=== PATIENT | female | born 1950 | race Caucasian/White ===

== ENCOUNTER 2020-12-24 08:00 | Outpatient (RCR) | payer MEDICARE, OTHER, SELFPAY ==
[2020-06-30 11:26] VITALS: BMI 21.4
[2020-12-24] MEDS: COVID-19 VACC, MRNA(PFIZER)/PF 30 MCG/0.3 ML SYRINGE IM (09:19)
[2021-01-14] MEDS: COVID-19 VACC, MRNA(PFIZER)/PF 30 MCG/0.3 ML SYRINGE IM (09:29)
== END 2021-03-30 23:59 ==
LOC: IMMUN 08:00
PROVIDERS: PCP Nurse Practitioner Adult Health; Visit Provider Family Medicine
DX: Z23 Encounter for immunization (principal)
CPT/HCPCS: 0001A; 0002A; 91300

== ENCOUNTER → 2021-07-14 10:43 | Outpatient (CLI) | payer MEDICARE, OTHER, SELFPAY ==
[2021-01-11 11:23] VITALS: BMI 21.2
--- NOTE | 2021-07-14 10:48 | ECHOD_ITS ---
Reason For Study: Murmur Procedure This was a 2D Doppler, Color Flow transthoracic echocardiogram. Exam performed in department. Left Ventricle Normal LV size. The estimated ejection fraction is 60 %. Normal diastology for age. No regional wall motion abnormalities noted. Right Ventricle Normal RV size. Normal systolic function. Atria Normal left atrium. Normal right atrium. No doppler evidence for ASD. Mitral Valve There is no mitral valve stenosis. Trivial mitral valve insufficiency. Tricuspid Valve There is no tricuspid stenosis. Unable to estimate RV systolic pressure due to insufficient tricuspid regurgitant envelope. Trivial tricuspid valve insufficiency. Aortic Valve Trisinus/trileaflet aortic valve. Mild diffuse aortic valve thickening. Moderate aortic stenosis. Mild (1+) aortic valve insufficiency. Pulmonic Valve There is no pulmonic valvular stenosis. Trivial pulmonic valve insufficiency. Great Vessels Normal aortic root. Pericardium/Pleural No pericardial effusion. MMode/2D Measurements & Calculations LVIDd: 3.7 cm IVSd: 0.99 cm LVOT diam: 2.0 cm LVIDs: 2.2 cm LVPWd: 0.96 cm LVOT area: 3.1 cm2 RVDd: 2.8 cm FS: 40.0 % Ao root diam: 3.6 cm LAV(MOD-bp): 26.7 ml LVAd ap4: 23.0 cm2 LAV(MOD-bp) Indexed: 16.8 ml/m2 LVLd ap4: 7.6 cm LAV(MOD-sp2): 27.7 ml EDV(MOD-sp4): 56.2 ml LAV(MOD-sp4): 21.3 ml EDV(sp4-el): 59.2 ml LVAs ap4: 13.4 cm2 LVLs ap4: 6.8 cm ESV(MOD-sp4): 23.7 ml ESV(sp4-el): 22.2 ml EF(MOD-sp4): 57.8 % EF(sp4-el): 62.4 % SV(MOD-sp4): 32.5 ml SV(sp4-el): 36.9 ml LA A4 area: 11.2 cm2 LA dimension(2D): 2.5 cm RA A4 area: 9.6 cm2 Doppler Measurements & Calculations MV E max irwin: 72.1 cm/sec Lat Peak E' Irwin: 6.5 cm/sec Med Peak E' Irwin: 5.9 cm/sec MV A max irwin: 82.7 cm/sec E/E' lat: 11.2 E/E' med: 12.1 MV E/A: 0.87 Ao V2 max: 345.3 cm/sec AI max irwin: 343.4 cm/sec LV V1 max: 109.4 cm/sec Ao max P.7 mmHg AI max P.2 mmHg LV V1 max P.8 mmHg Ao V2 mean: 245.7 cm/sec LV V1 mean P.9 mmHg Ao mean P.9 mmHg AI dec slope: 189.4 cm/sec2 LV V1 mean: 82.0 cm/sec Ao V2 VTI: 85.0 cm AI P1/2t: 531.1 msec LV V1 VTI: 27.4 cm ANGELI(I,D): 1.0 cm2 ANGELI(V,D): 0.99 cm2 SV(LVOT): 85.5 ml PA V2 max: 91.5 cm/sec TR max irwin: 230.5 cm/sec TR max P.2 mmHg ECHO/Echo Complete Interpretation Summary The estimated ejection fraction is 60 %. Trivial mitral valve insufficiency. Moderate aortic stenosis. Mild (1+) aortic valve insufficiency. Ordering Physician: Natalie Dumont Referring Physician: Tressa Bryan Performed By: Thea Fierro, LANCE, RVT
== END ==
PROVIDERS: PCP Nurse Practitioner Adult Health; Referring Provider Physician Assistant Medical; Visit Provider Physician Assistant Medical
DX: I35.0 Nonrheumatic aortic (valve) stenosis (principal)
CPT/HCPCS: 93306

== ENCOUNTER → 2022-06-22 | Outpatient (CLI) | payer MEDICARE, OTHER, SELFPAY ==
--- NOTE | 2022-06-22 13:00 | ECHOD_ITS ---
Reason For Study: MURMUR Procedure This was a 2D Doppler, Color Flow transthoracic echocardiogram. The exam was of adequate technical quality. Exam performed in department. Left Ventricle Normal LV size. Mid cavitary false tendon noted. Borderline concentric left ventricular hypertrophy. Left ventricular systolic function is normal. The estimated ejection fraction is 60 %. Normal diastology for age. No regional wall motion abnormalities noted. Right Ventricle Normal right ventricle. Normal systolic function. Atria Normal left atrium. Normal right atrium. Prominent eustachian valve. No doppler evidence for ASD. Mitral Valve There is no mitral annular calcification. The mitral valve is structurally normal. No prolapse or stenosis seen. Trivial mitral valve insufficiency. Tricuspid Valve Normal tricuspid valve. Trivial tricuspid valve insufficiency. Unable to estimate RV systolic pressure due to insufficient tricuspid regurgitant envelope. Aortic Valve Trisinus/trileaflet aortic valve. Moderate diffuse aortic valve thickening. Moderate diffuse aortic valve calcification. Moderate aortic stenosis. Peak aortic valve gradient 59 mmHg. Mean aortic valve gradient 36 mmHg. Calculated aortic valve area (continuity equation) is 0.8 cm2. Mild (1+) aortic valve insufficiency. Pulmonic Valve The pulmonic valve is not well visualized. Trivial pulmonic valve insufficiency. Great Vessels Normal sized aortic root. Pericardium/Pleural No pericardial effusion. MMode/2D Measurements & Calculations LVIDd: 4.1 cm IVSd: 1.1 cm LVOT diam: 2.0 cm LVIDs: 2.8 cm LVPWd: 1.1 cm LVOT area: 3.2 cm2 RVDd: 2.8 cm FS: 30.5 % Ao root diam: 3.5 cm LAV(MOD-bp): 37.6 ml LVAd ap4: 24.8 cm2 LAV(MOD-bp) Indexed: 25.6 ml/m2 LVLd ap4: 7.5 cm LAV(MOD-sp2): 46.7 ml EDV(MOD-sp4): 69.6 ml LAV(MOD-sp4): 27.8 ml EDV(sp4-el): 69.5 ml LVAs ap4: 12.8 cm2 LVLs ap4: 6.0 cm ESV(MOD-sp4): 23.4 ml ESV(sp4-el): 23.5 ml EF(MOD-sp4): 66.4 % EF(sp4-el): 66.2 % LVAd ap2: 24.0 cm2 SV(MOD-sp4): 46.2 ml SV(MOD-sp2): 41.9 ml LVLd ap2: 7.3 cm EDV(MOD-sp2): 64.9 ml EDV(sp2-el): 67.4 ml LVAs ap2: 12.6 cm2 LVLs ap2: 6.9 cm ESV(MOD-sp2): 22.9 ml ESV(sp2-el): 19.6 ml EF(MOD-sp2): 64.7 % SV(sp4-el): 46.0 ml LA dimension(2D): 2.9 cm LA A4 area: 13.0 cm2 RA A4 area: 12.7 cm2 Time Measurements MV dec time: 0.52 sec Doppler Measurements & Calculations MV E max irwin: 57.8 cm/sec Lat Peak E' Irwin: 6.2 cm/sec Med Peak E' Irwin: 6.9 cm/sec MV A max irwin: 96.5 cm/sec E/E' lat: 9.3 E/E' med: 8.4 MV E/A: 0.60 Ao V2 max: 384.4 cm/sec AI max irwin: 480.5 cm/sec MV dec slope: 131.4 cm/sec2 Ao max P.1 mmHg AI max P.3 mmHg Ao V2 mean: 286.2 cm/sec Ao mean P.2 mmHg AI dec slope: 278.0 cm/sec2 Ao V2 VTI: 101.4 cm AI P1/2t: 506.3 msec ANGELI(I,D): 0.79 cm2 ANGELI(V,D): 0.82 cm2 LV V1 max: 97.1 cm/sec SV(LVOT): 79.8 ml PA V2 max: 65.4 cm/sec LV V1 max P.8 mmHg LV V1 mean P.0 mmHg LV V1 mean: 67.1 cm/sec LV V1 VTI: 24.6 cm ECHO/Echo Complete Interpretation Summary Left ventricular systolic function is normal. The estimated ejection fraction is 60 %. Borderline concentric left ventricular hypertrophy. Mid cavitary false tendon noted. Prominent eustachian valve. Trivial mitral valve insufficiency. Trivial tricuspid valve insufficiency. Moderate aortic stenosis. Mild (1+) aortic valve insufficiency. Trivial pulmonic valve insufficiency. Unable to estimate RV systolic pressure due to insufficient tricuspid regurgita nt envelope. Normal diastology for age. Ordering Physician: Natalie Dumont Referring Physician: Tressa Bryan Performed By: Shirley Reyes RDCS, RVT
== END | disposition home or self-care (01) ==
LOC: CVS 12:39
PROVIDERS: PCP Nurse Practitioner Adult Health; Referring Provider Physician Assistant Medical; Visit Provider Physician Assistant Medical
DX: I35.0 Nonrheumatic aortic (valve) stenosis (principal)
CPT/HCPCS: 93306

== ENCOUNTER → 2023-01-13 | Outpatient (CLI) | payer MEDICARE, OTHER, SELFPAY ==
[2023-01-13 10:24] VITALS: BP 173/62; PULSE 59; RESP 16; TEMP 36; O2SAT 100; BMI 19.0
[2023-01-13] MEDS: 0.9% NaCl Peripheral Flush Adult/Peds IV (10:54)
[2023-01-13] MEDS: Zoledronic Acid 5 MG 100 ML 300 MG IV (10:59)
[2023-01-13 11:00] VITALS: BP 144/63
[2023-01-13 11:27] VITALS: BP 142/61; PULSE 58; RESP 16; TEMP 36.4; O2SAT 100
== END | disposition home or self-care (01) ==
LOC: MEDOUTP 10:13
PROVIDERS: PCP Nurse Practitioner Adult Health; Referring Provider Internal Medicine Endocrinology, Diabetes & Metabolism; Visit Provider Internal Medicine Endocrinology, Diabetes & Metabolism
DX: M85.80 Other specified disorders of bone density and structure, unspecified site (principal)
CPT/HCPCS: 96365; A4216; J3489

== ENCOUNTER → 2023-03-01 | Outpatient (CLI) | payer MEDICARE, OTHER, SELFPAY ==
--- NOTE | 2023-03-01 10:52 | ECHOL_ITS ---
Reason For Study: Re-Evaluate Gradients Procedure This was a limited 2D transthoracic echocardiogram. Exam performed in department. Left Ventricle Normal LV size. Left ventricular systolic function is normal. The estimated ejection fraction is 60 %. No regional wall motion abnormalities noted. Right Ventricle Normal RV size. Normal systolic function. Atria Normal left atrium. Normal right atrium. Mitral Valve Normal mitral valve. Tricuspid Valve Normal tricuspid valve. Aortic Valve Trisinus/trileaflet aortic valve. Moderate focal aortic valve calcification. Peak aortic valve gradient 70 mmHg. Mean aortic valve gradient 40 mmHg. Moderate to severe aortic stenosis. Mild (1+) aortic valve insufficiency. Pulmonic Valve Normal pulmonic valve. Great Vessels Normal aortic root. The pulmonary artery is normal size. Normal inferior vena cava. Pericardium/Pleural No pericardial effusion. MMode/2D Measurements & Calculations LVIDd: 4.2 cm IVSd: 0.87 cm LVOT diam: 2.0 cm LVIDs: 2.6 cm LVPWd: 0.96 cm LVOT area: 3.1 cm2 FS: 36.9 % Ao root diam: 3.3 cm LAV(MOD-sp4): 24.8 ml LA A4 area: 12.2 cm2 RA A4 area: 11.3 cm2 Doppler Measurements & Calculations Ao V2 max: 396.7 cm/sec AI max tiff: 377.6 cm/sec LV V1 max: 90.3 cm/sec Ao max P.3 mmHg AI max P.1 mmHg LV V1 max P.3 mmHg Ao V2 mean: 301.1 cm/sec AI dec slope: 262.8 cm/sec2 LV V1 mean P.9 mmHg Ao mean P.2 mmHg AI P1/2t: 420.8 msec LV V1 mean: 63.8 cm/sec Ao V2 VTI: 112.5 cm LV V1 VTI: 27.0 cm AV (velocity ratio): 0.24 ANGELI(I,D): 0.75 cm2 ANGELI(V,D): 0.71 cm2 SV(LVOT): 83.9 ml ECHO/Echo, Limited Study Interpretation Summary Normal LV size. Left ventricular systolic function is normal. The estimated ejection fraction is 60 %. Mean aortic valve gradient 40 mmHg. Moderate to severe aortic stenosis. Compared to the previous the Aortic valves gradients are worse. Ordering Physician: Barrie Fierro Referring Physician: Barrie Fierro Performed By: Basil Bustillos RCS
== END | disposition home or self-care (01) ==
LOC: CVS 10:51
PROVIDERS: PCP Nurse Practitioner Adult Health; Referring Provider Nurse Practitioner Family; Visit Provider Nurse Practitioner Family
DX: I35.0 Nonrheumatic aortic (valve) stenosis (principal); I10 Essential (primary) hypertension; E78.5 Hyperlipidemia, unspecified
CPT/HCPCS: 93308

== ENCOUNTER → 2023-03-14 | Outpatient (CLI) | payer MEDICARE, OTHER, SELFPAY ==
--- NOTE | 2023-03-14 11:05 | RAD_ITS ---
EXAM: XR CHEST, 2 VIEWS CLINICAL INDICATION: pre-operative: C TECHNIQUE: Frontal and lateral views of the chest. COMPARISON: No relevant prior studies available. FINDINGS: LUNGS AND PLEURAL SPACES: Unremarkable. No consolidation or edema. No pneumothorax. No effusion. HEART: Unremarkable. Cardiac silhouette not enlarged. MEDIASTINUM: Central airways and mediastinal contour are unremarkable. BONES/JOINTS: Unremarkable. SOFT TISSUES: Unremarkable. RAD/Chest PA and Lateral IMPRESSION: No radiographic evidence of acute cardiopulmonary disease. Electronically Signed: Thompson Peralta MD at 23:06 EDT ,
== END | disposition home or self-care (01) ==
LOC: RAD 10:49
PROVIDERS: PCP Nurse Practitioner Adult Health; Referring Provider Nurse Practitioner Family; Visit Provider Nurse Practitioner Family
DX: Z01.818 Encounter for other preprocedural examination (principal); I35.0 Nonrheumatic aortic (valve) stenosis; I10 Essential (primary) hypertension; E78.5 Hyperlipidemia, unspecified
CPT/HCPCS: 71046

== ENCOUNTER 2023-03-21 06:39 | Day surgery (SDC) | payer MEDICARE, OTHER, SELFPAY ==
--- NOTE | 2023-03-08 12:51 | HP.PCM_ITS ---
History and Physical Date of Admission: 03/21/23 Vivian Hagan is a 72-year-old female that presents here today for a heart catheterization. She has a history of aortic valve stenosis, hyperlipidemia, and hypertension.? She denies chest, arm, jaw, or neck discomfort.? She states palpitations over the last 6 months that she describes as a flutter. This occurs twice a week and lasts for 5 minutes. This resolves on its own.? She denies bilateral lower extremity edema.? She denies claudication.? She states shortness of breath with activity such as carrying clothes basket up the stairs. She denies SOB with ADLs. She denies shortness of breath at rest, orthopnea, or PND.? She denies chronic cough.? She denies significant, sudden weight gain.? She denies lightheadedness, dizziness, near-syncope, or syncope.? She denies blood in urine, blood in stool, or epistaxis.? He denies fever or chills.? She denies myalgia.? She denies fatigue.? Her exercise level has remained stable. She states at home her systolic readings 120-130s. Intake Vital Signs: See EMR Intake Visit Reasons:[facility] Certified Mortician Required: No Is patient in pain?: No Allergies demeclocycline Allergy (Intermediate, Verified 01/03/23 10:32) Hivessitagliptin [From Januvia] Allergy (Intermediate, Verified 01/03/23 10:32) Shortness of breathTetracyclines Allergy (Intermediate, Verified 01/03/23 10:32) Unknownamlodipine Adverse Reaction (Severe, Verified 01/03/23 10:32) hypertension Medications See EMR [facility] Medical History? 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 History of bunionectomy History of cataract extraction History of cystocele History of eye surgery History of selective laser trabeculoplasty History of tubal ligation Family History? Mother?? Cerebral hemorrhage ArthritisFather?? Myocardial infarctionBrother Myocardial infarction ?? ? deceasedSister CAD (coronary artery disease) Myocardial infarction Breast cancer Heart failure DiabetesSister Breast cancerGrandmother Cerebral hemorrhage ?? ? deceasedOther High cholesterol Hypertension Thyroid disorder Social History? Smoking Status:? Never smoker alcohol intake:? current alcohol intake frequency: holidays/special occasions only details:? occasionally glass of wine substance use type:? does not use caffeine:? Yes Type: carbonated beverages Number of servings: 1 and coffee Number of servings: 2 what type of physical activity do you participate in:? walking frequency:? daily ROS Const Const: Negative for fatigue, weakness, body ache, fever(s) or chills ENT ENT: Negative for dizziness or Nosebleed/epistaxis Cardio Chest Pain: No Palpitations: Yes Edema: None Muscle aches with walking: None Resp Respiratory: Positive for SOB with activity; Negative for SOB at rest, SOB orthopnea\SOB lying down, Cough or paroxysmal nocturnal dyspnea GI GI: Negative nausea, vomiting blood/hematemesis, bright, red blood in stools or black,tarry stools : Negative for hematuria or frequent nighttime urination/ nocturia Musc Musc: Negative for muscle aches/ myalgia Skin Skin: Negative non-healing lesions or rash Neuro Neuro: Negative for dizziness, lightheadedness, near syncope, syncope, orthostatic symptoms or weakness Endo Endo: Negative for fatigue Allergy Allergy/Immunology: Negative for rash Cardiology Exam Const Appearance: cooperative, healthy appearing, comfortable and no acute distress Nutritional Appearance: average body habitus and well nourished Orientation: alert, awake and oriented x3 Head Head: normal to inspection Ears: hearing grossly normal bilaterally Nose: external nose normal Face and Sinus: face symmetric Mouth: moist mucous membranes Eyes General: appearance normal, both eyes and all related structures Eyelids: eyelids normal EOM: EOM intact bilaterally Neck Neck: normal visual inspection and no JVD Carotids: normal carotid upstroke Chest Chest inspection: normal inspection of the chest, symmetric chest movement and normal respiratory effort; Negative cough Auscultation: Bilateral: Clear to Auscultation Cardio Rate: regular rate Rhythm: regular rhythm Heart sounds: S1 normal, S2 normal and murmur; Negative rub or gallop Murmur: Grade 3/6 and JEFF loudest primary aortic area GI GI: normal to inspection Neuro General: patient alert, patient awake, patient oriented x3 and CN's II-XI intact bilaterally Skin Skin: no rashes or lesions noted Extremities Pulses: Normal: Right Posterior Tibial Pulse, Left Posterior Tibial Pulse, Right Radial Pulse and Left Radial Pulse Lower Extremity Edema: None: Bilateral Psych Psychological: normal affect Supplemental Info Supplemental Information Echocardiogram 03/01/2023: Interpretation Summary Normal LV size. Left ventricular systolic function is normal. The estimated ejection fraction is 60 %. Mean aortic valve gradient 40 mmHg. Moderate to severe aortic stenosis. Compared to the previous the Aortic valves gradients are worse. Echocardiogram: 06-22-2022 Interpretation Summary ? Left ventricular systolic function is normal. The estimated ejection fraction is 60 %. Borderline concentric left ventricular hypertrophy. Mid cavitary false tendon noted. Prominent eustachian valve. Trivial mitral valve insufficiency. Trivial tricuspid valve insufficiency. Moderate aortic stenosis. Mild (1+) aortic valve insufficiency. Trivial pulmonic valve insufficiency. Unable to estimate RV systolic pressure due to insufficient tricuspid regurgitant envelope. Normal diastology for age. Echocardiogram 07-14-2021: The estimated ejection fraction is 60 %. Trivial mitral valve insufficiency. Moderate aortic stenosis. Mild (1+) aortic valve insufficiency. Assessment and Plan Assessment and Plan (1) Nonrheumatic aortic (valve) stenosis: ?Status:?Chronic ?Plan: She underwent an echocardiogram on March 01, 2023 that showed worsening aortic valve stenosis. Peak gradient was noted to be 70 mmHg. Mean gradient was noted be 40 mmHg. Aortic valve area was 0.75/0.7 1 cm?. On account of valvular disease and symptoms, she will proceed with heart catheterization to define coronary artery anatomy. This will help guide further valvular treatment. (2) Essential hypertension: ?Status:?Chronic ?Plan: Patient's blood pressure is well-controlled at home.? We will continue to monitor.? We will not make any medication regimen changes. We will consider adjustment as needed, baring in mind aortic valve disease. (3) Hyperlipidemia: ?Status:?Chronic ?Plan: A copy of her lipid labs has been requested after her last office appointment for continuity of care.
[2023-03-14 11:41] LABS: Absolute Lymphocyte Count 1.44 X10^3/uL (0.83-4.51); Absolute Neutrophil Count 3.2 X10^3/uL (2.0-7.7); Basophil# 0.07 X10^3/uL; Basophil% 1.3 % (0-1); Eosinophil# 0.12 X10^3/uL; Eosinophils% 2.2 % (0-5); Hematocrit 37.9 % (37-47); Hemoglobin 11.9 g/dL (12.0-15.0); Lymphocyte # 1.44 X10^3/ul (0.83-4.51); Lymphocyte % 26.3 % (19-41); Mean Corp Hgb Conc 31.4 g/dL (32-36); Mean Corpuscular Hgb 28.5 pg (27.0-32.0); Mean Corpuscular Volume 90.7 fL (81-99); Mean Platelet Vol. 10.4 fl (6.2-12.0); Monocyte# 0.58 X10^3/uL; Monocyte% 10.6 % (0-10); NRBC Flagged by Analyzer 0 % (0-5); Neutrophil # 3.21 X10^3/uL (2.7-7.7); Neutrophil % 58.5 % (47-70); Platelet Count 305 K/mm3 (150-450); RBC Distribution Width CV 13.1 % (11.6-14.6); RBC Distribution Width SD 43.1 fl (35.1-43.9); Red Blood Count 4.18 M/mm3 (4.2-5.4); White Blood Count 5.5 K/mm3 (4.4-11.0)
[2023-03-14 12:40] LABS: Anion Gap 5 (5-15); BUN 11 mg/dL (7-18); BUN/Creat Ratio 10.2 RATIO (10-20); Calcium,Total 9.9 mg/dL (8.5-10.1); Chloride 110 mmol/L (98-107); Creatinine, Serum 1.08 mg/dL (0.55-1.02); EST Glomerular Filtration Rate 53 mL/min (>60); Est Glom Filt Rate - Afr Amer 64 mL/min (>60); Glucose 106 mg/dL (74-106); Potassium 4.8 mmol/L (3.5-5.1); Sodium Level 141 mmol/L (136-145)
[2023-03-21 07:02] VITALS: BMI 18.8
--- NOTE | 2023-03-21 08:30 | CL.D_ITS ---
Patient Name: NISA FERRIS Study Date: 03/21/2023 Performing: Martinez Sharma MD Ht: 64 inches 162.56 cm : 1950 Wt: lbs kg Age: 72 Gender: female BSA: PROCEDURE(S) PERFORMED [id number])C/COR CLINICAL PROFILE AND INDICATIONS Indications: Valvular Disease Heart Failure: None Stress/Imaging Stress/Image Study Performed: No CAD Presentations: No Sxs, no angina. CONCLUSIONS Mild LAD disease. Preserved LV function. Severe aortic stenosis. RECOMMENDATIONS Consider for TAVR. DESCRIPTION OF PROCEDURE The patient arrived to the procedure lab. The risks and benefits of the procedure as well as a full description of our services here and current unavailability of surgical backup were fully explained to the patient and/or their significant other prior to the catheterization. The Timeout was completed, verifying the correct patient and procedure. The patient's procedural site was prepped and draped in the usual fashion. Local anesthetic was given subcutaneously to right radial region with Lidocaine 2%. Local anesthetic was given subcutaneously to right groin region with Lidocaine 2%. Using a modified Seldinger technique, arterial access was obtained via the right radial artery, a 6Fr sheath was inserted., arterial access was obtained via the right femoral artery, a 5Fr sheath was inserted. Right upper extremity selective angiography was then performed in single view. Left Coronary Artery selective angiography was performed in multiple views using a 5 Fr. JL4 catheter. Right Coronary Artery selective angiography was then performed in multiple views using a 5 Fr. 3DRC ([place]) catheter.Contrast was injected through the sheath and the Right Iliac and Femoral artery were assessed for possible closure device.The femoral arterial sheath was pulled and a Mynx closure device was deployed for hemostasis. The radial arterial sheath was pulled and a TR Band was applied for hemostasis - 10cc air CORONARY ANGIOGRAPHY DOMINANCE: Right Dominant LEFT HEART ASSESSMENT Left Ventricular Ejection Fraction: by Echo 60 % Normal LV wall motion Normal Left Ventricular systolic function LEFT MAIN: Angiographically normal LEFT ANTERIOR DESCENDING ARTERY: Mild calcification, Mild to moderate 30 to 50% stenosis in the mid left anterior descending artery. CIRCUMFLEX ARTERY: Mild luminal irregularities RIGHT CORONARY ARTERY: No significant disease noted VALVE FINDINGS: Aortic Valve Calcification - severe Aortic Valve Stenosis - severe COMPLICATIONS No Complications PROCEDURE MEDICATIONS Fentanyl 50 mcg IV Versed 1 mg IV Versed 1 mg IV Oxygen: 2 L/min via nasal cannula Heparin given IA 03/21/2023 07:52:09 Verapamil 2.5mg, 3000 units of Heparin given IA 03/21/2023 07:52:09 SUMMARY OF HEMODYNAMIC DATA Time AIR REST ECG 07:05:09 AO 173/77 (111) SA 07:54:12 Signed By Martinez Sharma MD On 03/21/2023 08:30:19 Martinez Sharma MD
== END 2023-03-21 10:30 | disposition home or self-care (01) ==
LOC: CLSP 06:40
PROVIDERS: Nurse Practitioner Family; PCP Nurse Practitioner Adult Health; Referring Provider Internal Medicine Cardiovascular Disease; Visit Provider Internal Medicine Cardiovascular Disease
DX: I35.0 Nonrheumatic aortic (valve) stenosis (principal); E11.9 Type 2 diabetes mellitus without complications; I10 Essential (primary) hypertension; E78.5 Hyperlipidemia, unspecified; Z79.82 Long term (current) use of aspirin; Z79.84 Long term (current) use of oral hypoglycemic drugs; Z79.899 Other long term (current) drug therapy; E03.9 Hypothyroidism, unspecified; Z79.890 Hormone replacement therapy; I25.10 Atherosclerotic heart disease of native coronary artery without angina pectoris
CPT/HCPCS: 36415; 80048; 85025; 93454; 99152; 99153; C1760; J7040; C1769; C1894; Q9967

== ENCOUNTER → 2023-05-15 | Outpatient (CLI) | payer MEDICARE, OTHER, SELFPAY ==
--- NOTE | 2023-05-15 12:47 | PCM.CR.HP2 ---
CR - History & Physical General Arrival date:: 05/15/23 Arrival time:: 12:53 Date of Referral:: 05/10/23 Date of CR Evaluation:: 05/15/23 Referring Physician: Dr. Martinez Sharma Primary Diagnosis: Heart valve replacement History of Present Cardiac Event Onset Date Heart valve replacement or repair:: Yes (TAVR 04/10/23) Medications Ambulatory Orders Medication Instructions Recorded aspirin 81 mg tablet,delayed 81 mg PO DAILY 06/30/20 release (Adult Aspirin Regimen) latanoprost 0.005 % eye drops 1 drp ophthalmic (eye) QPM 06/30/20 levothyroxine 50 mcg tablet 50 mcg PO DAILY 06/30/20 metformin 1,000 mg tablet 1,000 mg PO BID 06/30/20 omeprazole 20 mg capsule,delayed 20 mg PO DAILY 06/30/20 release pravastatin 10 mg tablet 10 mg PO QHS 06/30/20 dorzolamide 22.3 mg-timolol 6.8 1 drp ophthalmic (eye) ONCE 03/01/22 mg/mL eye drops losartan 100 mg tablet 100 mg PO DAILY 07/20/22 mecobalamin (vitamin B12) 1,000 1,000 mcg PO DAILY 11/10/22 mcg chewable tablet amlodipine 5 mg tablet 5 mg PO DAILY 01/03/23 diclofenac sodium 1 % topical gel 0.5 g topical .qid 05/10/23 Allergies Allergies demeclocycline Allergy (Intermediate, Verified 03/17/23 09:47) Hives sitagliptin [From Januvia] Allergy (Intermediate, Verified 03/17/23 09:47) Shortness of breath Tetracyclines Allergy (Intermediate, Verified 03/17/23 09:47) Unknown amlodipine Adverse Reaction (Severe, Verified 03/17/23 09:47) hypertension brimonidine Adverse Reaction (Unknown, Verified 05/10/23 13:45) unknown- ask pt at next appt Sleep Disorder Evaluation Hx of Sleep Apnea: No Do you snore loudly (louder than talking or can be heard through closed doors)?: No Do you often feel tired/ fatigued/ sleepy during daytime?: No Has anyone observed you stop breathing during sleep?: No History of Hypertension (for STOP score): Yes STOP Results: Negative Advanced Directives Advanced Directives Power of Baby Attendant: Yes Living Will: Yes Advance Directives Information Provided: Yes Advance Directives on File: No DNR Order?:: No Past Medical History Covid-19 Screening Physicial Symptoms Other Clinical Concerns Exposure Risk Pertinent Comorbidities Has a serious heart condition:: Yes Diabetic:: Yes Past Medical Illness Medical History Essential hypertension GERD (gastroesophageal reflux disease) 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) History of retinal detachment Hypercalcemia Hyperlipidemia Hyperparathyroidism Hypothyroidism Nonrheumatic aortic (valve) stenosis Osteopenia determined by x-ray Type 2 diabetes mellitus without complication Past Surgical History Surgical History History of bunionectomy History of cataract extraction History of cystocele History of eye surgery History of selective laser trabeculoplasty History of tubal ligation S/P TAVR (transcatheter aortic valve replacement) (04/10/23) Family History Summary Family History Mother Cerebral hemorrhage Arthritis Father Myocardial infarction Brother Myocardial infarction Sister CAD (coronary artery disease) Myocardial infarction Breast cancer Heart failure Diabetes Sister Breast cancer Grandmother Cerebral hemorrhage Other High cholesterol Hypertension Thyroid disorder Social History Smoking History Smoking Status: Never smoker Alcohol Use Alcohol Usage: Yes (socially) Occupation Occupation (List type of work in comments):: Retired Hobbies, Recreation, Social Activities Hobbies: Reading and Walking Recreational Activities: I am able to engage in all my recreational activities Social Environment Status Marital Status: Current Living Arrangements Living Environment:: Family Children How many children do you have?: 2 Do any of your children live nearby?: Yes Safety Do you feel safe in your surroundings?: Yes Assistance Do you need any assistance at home?: no Review of Systems Review of Systems Hints Review of Present Symptoms: Reports Shortness of Breath with Exertion, Dizziness/Lightheadedness, Fatigue, Appetite - Normal and Appetite - Special Diet; Denies Shortness of Breath at Rest, PVD, Operative Discomfort, Angina, Wound Healing, Heart Arrhythmia/Irregularities, Sleep - Normal or Sexual Changes Pain Is Patient Pain Free?: Yes Risk Factor Assessment Chief Complaint Chief Complaint: Heart valve replacement Vital Signs Pulse Ox: 98 Blood Pressure: 135/76 Pulse Pulse Rate: 58 Pulse Rhythm: Regular Hypertension How long have you been treated?: 12-15 years Stress Stress: Home/Family Diabetes Diabetic History: Type II Nutrition Referral for Diabetes: No Obesity Height: 5 ft 4 in Weight:: 109 lb Weight in Pounds: 109.0 lbs Body Mass Index (BMI): 18.7 Nutritional Referral for Obesity: No Physical Inactivity Physical Inactivity: Reg Exercise 30 min/day (walking) Risk Stratification Risk Guidelines: Lowest Risk: Risk Factor for Smoking, Risk Factor for Dyslipidemia and Risk Factor for Obesity, Moderate Risk: Risk Factor for Sedentary Lifestyle and Risk Factor for Depression and Highest Risk: Risk Factor for Diabetes and Risk Factor for Hypertension For Smoking Smoking Risk Guidelines For Dyslipidemia Dyslipidemia Risk Guidelines For Diabetes Mellitus Diabetes Risk Guidelines For Obesity/Overweight Obesity/Overweight Risk Guidelines For Hypertension Hypertension Risk Guidelines For Sedentary Lifestyle Sedentary Lifestyle Risk Guidelines For Depression Depression Risk Guidelines Family History Family History Mother Cerebral hemorrhage Arthritis Father Myocardial infarction Brother Myocardial infarction Sister CAD (coronary artery disease) Myocardial infarction Breast cancer Heart failure Diabetes Sister Breast cancer Grandmother Cerebral hemorrhage Other High cholesterol Hypertension Thyroid disorder Motivation Motivation to Participate On a scale of 1 to 10, how prepared are you to commit to attending program?: 8 What do you see as barriers to successfully being able to complete the program?: none What do you see as the benefits of succesfully completing the program? In other words, what do you hope to get out of participating in the program?: more energy, improved health, get back to walking Are there issues you are dealing with that will interfere with completing the program?: no Do you have a spouse or signficant other, family or friends who will help support you to complete the program?: yes
--- NOTE | 2023-05-15 13:02 | PCM.CR.ITP ---
Diagnosis General Information Admitting Diagnosis: heart valve replacement Personal Learning Style:: Audio/Visual Stage of change r/t lifestyle modifications:: Contemplation Gave educational material for:: Treating Heart Disease, How The Heart Works, What it means to have Heart Disease, How Coronary Artery Disease is Diagnosed, Heart Procedures, What Heart Medications Do, Risk Factors & Modifications, Living an Active Life, Nutrition, Emotions & Heart Disease, Stress Management & Relaxation and Sleep Disorders & Heart Disease Education/Goals Cardiac Rehabilitation Goals Personal Goals: Initial Assessment: Improve energy level, Participate in home exercise program, Get back to work, or to resume activities faster, Improve muscle strength and endurance, Improve diet and eating habits (eat healthier) and Control risk factors (learn risk factor modification) Scale for measuring improvement of personal goals Diagnosis & Disease Process Outcomes/Goals: Pt IDs own risk factors & lifestyle modifications by Session 10, Verbalizes symptoms of angina & response by session 3., Pt independently manages and Other Additional Outcomes/Goals: Plan/Interventions: Assist Pt to ID & engage in lifestyle modification to reduce CVD risk, Instruct on individual risk factors, Review symptoms of angina & emergency actions, Review secondary diagnosis & identify educational needs. and Other see comment 30 day Reassessments:: Not Met 30 day Reassessments:: Not Met 30 day Reassessments:: Not Met 30 day Reassessments:: Not Met Final Reassessments:: Not Met Safety Referral to Physical Therapy: No Referral to [facility] Case Management: No Fall Risk Assessed:: Yes Assistive Devices:: None Exercise - Initial Assessment Visit Date of Eval: 05/15/23 (initial eval ) Mets: Pre-: >3 METS for 30 minutes by discharge, >5 METS for 30 minutes by discharge, >7 METS for 30 minutes by discharge and Unable to meet goal due to: (see comment below) Physician Prescribed Exercise Modalities: Treadmill, Rower, Airdyne, NuStep, SciFit and Lateral [place] Frequency: 2x/week for 18 weeks [36 sessions] and 3x/week for 12 weeks [36 sessions] Intensity: 60-80% of age predicted maximum heart rate reserve Current METSs:: 3 Target Heart Rate:: 97-112 Resting Blood Pressure: 135/76 EKG Type: marked sinus lor Outcomes & Goals Goals:: Verbalizes understanding of THR, RPE & goal METS by session 6, Documents in home exercise log/reports 30 min aerobic 5 day/wk by DC, Demonstrates accurate pulse taking by DC and Other additional outcome/goals: see below Intervention & Plan Exercise Program Goals: Instruct on personal THR & RPE, Instruct on MET level & personal MET goal, Show patient to take own pulse /validate performance until accurate, Instruct on home exercise and Other additional plan/int Physical Activity Home Exercise Physical Activity - Home Exercise: Safe Exercise, Warm-up, Self-monitoring, Cool-Down, Home Exercise > 30 min Daily and Sitting Time <3 hours/daily Outcomes & Goals Outcomes/Goals: Demonstrates correct Warm-up/exercise Cool-Down (S3) if = 2.5 METs, Verbalizes symptoms of exercise intolerance by Session 3 (S3), Demonstrate safe equipment use (S3) & follows exercise prescrition (6) and Other: See below Intervention & Plan Plan/Intervention: Instruct warm-up & cool-down if exercising at > 2 METs, Instruct on symptoms of exercise intolerance & actions to take, Instruct & monitor on saf, Assess intial functional capacity & safety risk and Other See below Nutrition - Initial Assessment Program Goals Nutrition Program Goals Patient has diagnosis of Hyperlipidemia (ICD E78)?: Yes Visit Date of Eval: 05/15/23 (initial eval) Cholesterol/Lipids (Other Core Measures) Determine presence & major risk factors that modify LDL goal: Hypertension or hypertensive medication, Low HDL cholesterol <40 mg/dL*, Family history of premature CHD in Male < 55 years: female <65 yearsFa and Age men > 45 years; women >/= 55 years Outcomes/Goals: Pt IDs own risk factors & lifestyle modifications by Session 10, Verbalizes symptoms of angina & response by session 3., Pt independently manages and Other Additional Outcomes/Goals: Intervention/Plan: Advocate for lipid panel cholesterol medication if applicable, Instruct on personal lipid levels & lipid goals/NCEP guidelines, Instruct on cholesterol and Other additional plan/int Referral to dietitian:: No (declines) Diabetes (Other Core Measures) Diabetes Type: 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 Insulin dependent injection/pump?: No Non-Insulin Dependent?: Yes Do you monitor your blood sugar at home?: No (1 time every 2 weeks) Referral to Diabetic Clinic:: No (declines) Outcomes/Goals:: Able to state symptoms of, Able to state, Able to state and Other additional Intervention/Plan:: Instruct on, Refer to, Instruct on and Other Weight Mgt (Other Care) Height: 5 ft 4 in Weight:: 109 lb BMI: 18.7 Diagnosis Overweight/Obesity BMI> 30% ICD-10 E66: No Diagnosis High BMI/Morbid Obesity BMI> 35% ICD-10 Z68: No Outcomes/Goals: Pt sets, maintains & shows weight loss goal & trend during rehab and Other additional outcomes/goals Intervention/Plan: Instruct on ideal BMI & set weight loss goal w/patient, Assist pt to ID & incorporate diet changes for weight loss by S9, Refer to Structured Weight Loss program as appropriate, Encourage goal of using 250-300dcal per session for weight loss and Other additional plan/interventions Healthy Eating Habits Will attend diet classes:: Yes Outcomes/Goals:: Consume diet rich in vegs,fruits,whole grain/high fiber,fish,lean meat, Limit sat/trans fats,cholesterol & added salts & sugars and Other additional outcome/goals: Intervention/Plan:: Assess current eating habits and Other Additional plan/interventions Education Gave educational materials for:: Signs & symptoms of hypoglycemia, Signs & symptoms of hyperglycemia, Relate diabetes to coronary artery disease and Healthy eating Core - Initial Assessment Visit Date of Eval: 05/15/23 (initial eval ) Medication Compliance Preventative Medication(s):: Aspirin, ANNI inhibitor, Statin/lipid and ARB (Angiotensi Rcap) H/O mental health issues: depression, anxiety, or addiction?: No Doesn?t believe in the benefits of treatment?: No Believes medications are unnecessary or harmful?: No Has a concern about medication side effects?: No Expresses concern over the cost of medications?: No Outcomes/Goals: Verbalizes medications,desired effect & common side effects @ DC, Pt self-reports following medication regimen, Keeps card in wallet w/medications listed by DC and Other additional outcome/goals: Interventions/plans: Instruct on medication effects & side effects, Review medication list w/patient every two weeks, Instruct importance of taking meds as ordered & assist problem solving and Other additional Tobacco Use Tobacco Use: Non-smoker Do you use smokeless tobacco?: No Hypertension Hypertension Diagnosis:: Hypertension ICD-10 I10 Resting Blood Pressure:: 135/76 [place] [employer] Hypertension Guidelines Outcomes/Goals: Able to verbalize/achieve optimal blood pressure <130/80, Incorporates diet changes & exercise for blood pressure control by DC and Other additional outcomes/goals Interventions/plan: Instruct on optimal blood pressure, hypertension & medications, Instruct on effects of sodium, alcohol, stress, exercise &hypertension and Other additional plan/interventions Tobacco Cessation Referral Smoking Cessation Referral:: No Individual Education/Counseling:: No Education Schedule Given:: Yes Psychosocial - Initial Assess VIsit Date of Eval: 05/15/23 (initial eval ) History of previous Mental disease:: No Target Goals Target Goals Patient Health Questionnaire PHQ-9 Screening Initial Assessment: 1. Little interest or pleasure in doing things: Not at all 2. Feeling down, depressed, or hopeless: Not at all 3. Trouble falling or staying asleep, or sleeping too much: Several days 4. Feeling tired or having little energy: More than half the days 5. Poor appetite or overeating: Not at all 6. Feeling bad about yourself -- or that you are a failure or have let yourself or your family down: Not at all 7. Trouble concentrating on things, such as reading the newspaper or watching television: Not at all 8. Moving or speaking so slowly that other people could have noticed. Or the opposite - being so fidgety or restless that you have been moving around a lot more than usual: Not at all 9. Thoughts that you would be better off , or of hurting yourself in some way: Not at all How difficult have these problems made it for you to do your work, take care of things at home, or get along with other people?: Somewhat difficult Total Score: 3 JAXON-Q SV Test Statements CAD is a disease of the arteries in the heart: False Examples of risk factors for heart disease: True Angina is chest pain or discomfort: True The benefits of resistance training include: True Eating more meat and dairy products: True Anti-platelet medications such as aspirin are important: True The only effective way to manage stress: False An exercise warm-up slowly increases heart rate: True Prepared, processed foods usually have high sodium: True Depression is common after a heart attack: I Don't Know The statin medications lower cholesterol: True To control blood pressure, lower the amount of sodium: True If someone gets chest discomfort during walking: False Transfats are partially hydrogenated vegetable oils: True Sleep apnea that is not treated increases the risk: I Don't Know To control cholesterol, one should become a vegetarian: False Someone knows if he/she is exercising at the right level: True Diabetes cannot be prevented with exercise & health eating: False Stress is a large risk for heart attack: True A diet that can help lower blood pressure is rich in: True Total Score Total Correct Responses: 17 Self-Efficacy 6-Item Scale Initial Assessment: We would like to know how confident you are in doing certain activities. Please select your confidence level for: Fatigue Select Number: 4 Physical Discomfort or Pain Select Number: 8 Emotional Distress Select Number: 4 Other Symptoms or Health Problems Select Number: 5 Different Tasks and Activities Select Number: 5 Medication Select Number: 5 Total Score:: 5 Nutrition Survey Nutrition Survey Instructions Scoring Instructions Nutrition Survey Initial: Have you lost >10 lbs over the past 2 months without trying?: No Are you following a special diet at home for diabetes, low fat, or low salt?: Yes Are you interested in meeting with a dietitian for help understanding your diet?: No Do you eat less than 3 meals a day?: No Do you eat fatty meats (paz, sausage, ribs, etc), fried foods, desserts, large amounts of salad dressings, margarine, butter, or cheese most days?: Yes Do you have food allergies? [Enter types in comment field]: No Do you eat in restaurants more than 3 times a week?: No Do you season food with salt, seasoning salt, or garlic salt?: Yes Do you used canned, boxed, frozen meals, or soups, seasoning packets?: Yes Total Score:: 4 Exercise - Final/Discharge Physician Prescribed Exercise Modalities: Treadmill, Rower, Airdyne, NuStep, SciFit and Lateral [place] Frequency: 2x/week for 18 weeks [36 sessions] and 3x/week for 12 weeks [36 sessions] Intensity: 60-80% of age predicted maximum heart rate reserve Current METSs:: 3 Target Heart Rate:: 97-112 Nutrition - 30-Day Assessment Weight Mgt (Other Care) Height: 5 ft 4 in Weight:: 109 lb BMI: 18.7 Nutrition - 60-Day Assessment Weight Mgt (Other Care) Height: 5 ft 4 in Weight:: 109 lb BMI: 18.7 Core - Final Assessment Hypertension Resting Blood Pressure:: 135/76 [place] [employer] Hypertension Guidelines Core - 60-Day Assessment Hypertension Resting Blood Pressure:: 135/76 [place] [employer] Hypertension Guidelines Psychosocial - 30-Day Assess Target Goals Target Goals Psychosocial - 60-Day Assess Target Goals Target Goals Psychosocial - 90-Day Assess Target Goals Target Goals Psychosocial - Final Assessmen Target Goals Target Goals Nutrition - 90-Day Assessment Weight Mgt (Other Care) Height: 5 ft 4 in Weight:: 109 lb BMI: 18.7 Nutrition - Final Assessment Program Goals Patient has diagnosis of Hyperlipidemia (ICD E78)?: Yes Weight Mgt (Other Care) Height: 5 ft 4 in Weight:: 109 lb BMI: 18.7
[2023-05-15 13:14] VITALS: O2SAT 98
[2023-05-15 13:24] VITALS: BP 135/76; PULSE 58
[2023-05-15 13:50] VITALS: BMI 18.7
[2023-05-15 13:51] VITALS: BMI 18.7
[2023-05-15 14:00] VITALS: BP 135/76
== END | disposition home or self-care (01) ==
LOC: CR 12:33
PROVIDERS: PCP Nurse Practitioner Adult Health; Referring Provider Internal Medicine Cardiovascular Disease; Visit Provider Internal Medicine Cardiovascular Disease
DX: Z95.2 Presence of prosthetic heart valve (principal)

== ENCOUNTER 2023-05-22 11:24 | Outpatient (RCR) | payer MEDICARE, OTHER, SELFPAY ==
[2023-05-15 13:51] VITALS: BMI 18.7
== END 2023-05-22 23:59 ==
LOC: CR 11:24
PROVIDERS: PCP Nurse Practitioner Adult Health; Referring Provider Internal Medicine Cardiovascular Disease; Visit Provider Internal Medicine Cardiovascular Disease
DX: Z95.4 Presence of other heart-valve replacement (principal)
CPT/HCPCS: 93798

== ENCOUNTER → 2023-06-20 | Outpatient (CLI) | payer MEDICARE, OTHER, SELFPAY ==
[2023-05-15 13:51] VITALS: BMI 18.7
[2023-06-12 11:30] VITALS: BMI 19.2
--- NOTE | 2023-06-20 09:56 | ECHOD_ITS ---
Reason For Study: S/P TAVR Procedure This was a 2D Doppler, Color Flow transthoracic echocardiogram. Exam performed in department. Left Ventricle Normal LV size. Left ventricular systolic function is normal. The estimated ejection fraction is 70 %. Stage 1 diastolic dysfunction. No regional wall motion abnormalities noted. Right Ventricle Normal RV size. Normal systolic function. Atria Normal left atrium. Normal right atrium. Mitral Valve Normal mitral valve. Tricuspid Valve Normal tricuspid valve. Aortic Valve Bioprosthetic aortic valve. Pulmonic Valve Normal pulmonic valve. Great Vessels Mild to moderately dilated aortic root. The pulmonary artery is normal size. Normal inferior vena cava. Pericardium/Pleural No pericardial effusion. MMode/2D Measurements & Calculations LVIDd: 4.2 cm IVSd: 1.2 cm Ao root diam: 4.1 cm LVIDs: 3.0 cm LVPWd: 1.0 cm RVDd: 2.8 cm FS: 28.9 % LAV(MOD-sp4): 31.4 ml LVAd ap4: 25.7 cm2 SV(MOD-sp4): 49.3 ml LVLd ap4: 7.7 cm EDV(MOD-sp4): 70.9 ml EDV(sp4-el): 72.4 ml LVAs ap4: 12.7 cm2 LVLs ap4: 7.4 cm ESV(MOD-sp4): 21.5 ml ESV(sp4-el): 18.4 ml EF(MOD-sp4): 69.6 % EF(sp4-el): 74.7 % SV(sp4-el): 54.1 ml LA A4 area: 14.5 cm2 LA dimension(2D): 2.0 cm RA A4 area: 15.3 cm2 TAPSE: 1.4 cm Time Measurements MV dec time: 0.29 sec Doppler Measurements & Calculations MV E max irwin: 81.0 cm/sec Lat Peak E' Irwin: 9.8 cm/sec Med Peak E' Irwin: 9.2 cm/sec MV A max irwin: 97.9 cm/sec E/E' lat: 8.2 E/E' med: 8.8 MV E/A: 0.83 MV V2 max: 105.7 cm/sec Ao V2 max: 191.9 cm/sec MV max P.5 mmHg MV dec slope: 281.1 cm/sec2 Ao max P.7 mmHg MV V2 mean: 60.7 cm/sec Ao V2 mean: 144.7 cm/sec MV mean P.7 mmHg Ao mean P.1 mmHg MV V2 VTI: 39.3 cm Ao V2 VTI: 43.1 cm AV (velocity ratio): 0.87 LV V1 max: 139.5 cm/sec PA V2 max: 83.1 cm/sec LV V1 max P.8 mmHg PA V2 mean: 57.3 cm/sec LV V1 mean P.1 mmHg LV V1 mean: 106.9 cm/sec LV V1 VTI: 37.4 cm ECHO/Echo Complete Interpretation Summary Normal LV size. Left ventricular systolic function is normal. The estimated ejection fraction is 70 %. Stage 1 diastolic dysfunction. Bioprosthetic aortic valve. Ordering Physician: Barrie Fierro Referring Physician: Barrie Fierro Performed By: Jennyfer Wang RCS
== END | disposition home or self-care (01) ==
LOC: CVS 09:55
PROVIDERS: PCP Nurse Practitioner Adult Health; Referring Provider Nurse Practitioner Family; Visit Provider Nurse Practitioner Family
DX: I35.0 Nonrheumatic aortic (valve) stenosis (principal); I25.10 Atherosclerotic heart disease of native coronary artery without angina pectoris; Z95.2 Presence of prosthetic heart valve
CPT/HCPCS: 93306

== ENCOUNTER 2023-06-21 10:15 | Outpatient (RCR) | payer MEDICARE, OTHER, SELFPAY ==
[2023-05-15 13:51] VITALS: BMI 18.7
--- NOTE | 2023-06-12 11:02 | CR.ITP_ITS ---
Exercise - Initial Assessment Visit Session #:: 9 Nutrition - Initial Assessment Weight Mgt (Other Care) Height: 5 ft 4 in Weight:: 112 lb BMI: 19.2 Psychosocial - Initial Assess Target Goals Target Goals Patient Health Questionnaire PHQ-9 Screening 30-Day Re-eval Assessment: 1. Little interest or pleasure in doing things: Not at all 2. Feeling down, depressed, or hopeless: Not at all 3. Trouble falling or staying asleep, or sleeping too much: Several days 4. Feeling tired or having little energy: More than half the days 5. Poor appetite or overeating: Not at all 6. Feeling bad about yourself -- or that you are a failure or have let yourself or your family down: Not at all 7. Trouble concentrating on things, such as reading the newspaper or watching television: Not at all 8. Moving or speaking so slowly that other people could have noticed. Or the opposite - being so fidgety or restless that you have been moving around a lot more than usual: Not at all 9. Thoughts that you would be better off , or of hurting yourself in some way: Not at all How difficult have these problems made it for you to do your work, take care of things at home, or get along with other people?: Somewhat difficult Total Score: 3 Self-Efficacy 6-Item Scale 30-Day Re-eval Assessment: We would like to know how confident you are in doing certain activities. Please select your confidence level for: Fatigue Select Number: 4 Physical Discomfort or Pain Select Number: 8 Emotional Distress Select Number: 4 Other Symptoms or Health Problems Select Number: 5 Different Tasks and Activities Select Number: 5 Medication Select Number: 5 Total Score:: 5 Nutrition Survey Nutrition Survey Instructions Scoring Instructions Exercise - 30-day Assessment Visit Date of Eval: 06/12/23 Session #:: 9 Physician Prescribed Exercise Modalities: Rower, SciFit and Lateral Kitchen Mechanic Frequency: 3x/week for 12 weeks [36 sessions] Intensity: 60-80% of age predicted maximum heart rate reserve Duration: 30 - 45 minutes Current METSs:: 4 Target Heart Rate:: 97-112 Current RPE:: 12-13 Maximum Excercise HR:: 89 Resting Blood Pressure: 138/66 Maximum Exercise Blood Pressure: 168/72 EKG Type: SB to ST with occas to freq pac's and pvc's Outcomes & Goals Goals:: Verbalizes understanding of THR, RPE & goal METS by session 6, Documents in home exercise log/reports 30 min aerobic 5 day/wk by DC, Demonstrates accurate pulse taking by DC and Other additional outcome/goals: see below Intervention & Plan Exercise Program Goals: Instruct on personal THR & RPE, Instruct on MET level & personal MET goal, Show patient to take own pulse /validate performance until accurate, Instruct on home exercise and Other additional plan/int 30-day Reassessments 30 day Reassessments:: Progressing Reassessment Notes & Comments:: RPE explained Physical Activity Home Exercise Physical Activity - Home Exercise: Safe Exercise, Warm-up, Self-monitoring, Cool-Down, Home Exercise > 30 min Daily and Sitting Time <3 hours/daily Outcomes & Goals Outcomes/Goals: Demonstrates correct Warm-up/exercise Cool-Down (S3) if = 2.5 METs, Verbalizes symptoms of exercise intolerance by Session 3 (S3), Demonstrate safe equipment use (S3) & follows exercise prescrition (6) and Other: See below Intervention & Plan Plan/Intervention: Instruct warm-up & cool-down if exercising at > 2 METs, Instruct on symptoms of exercise intolerance & actions to take, Instruct & monitor on saf, Assess intial functional capacity & safety risk and Other See below 30-day Reassessments 30 day Reassessments:: Progressing Reassessment Notes & Comments:: warm up encouraged Nutrition - 30-Day Assessment Program Goals Nutrition Program Goals Patient has diagnosis of Hyperlipidemia (ICD E78)?: Yes Visit Date of Eval: 06/12/23 Session #:: 9 Cholesterol/Lipids (Other Core Measures) Determine presence & major risk factors that modify LDL goal: Hypertension or hypertensive medication, Low HDL cholesterol <40 mg/dL*, Family history of premature CHD in Male < 55 years: female <65 yearsFa and Age men > 45 years; women >/= 55 years Outcomes/Goals: Pt IDs own risk factors & lifestyle modifications by Session 10, Verbalizes symptoms of angina & response by session 3., Pt independently manages and Other Additional Outcomes/Goals: Intervention/Plan: Advocate for lipid panel cholesterol medication if applicable, Instruct on personal lipid levels & lipid goals/NCEP guidelines, Instruct on cholesterol and Other additional plan/int Referral to dietitian:: Yes 30-day Reassessments:: Progressing Reassessment Notes & Comments:: pt to attend nutrition class Diabetes (Other Core Measures) Diabetes Type: 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 Insulin dependent injection/pump?: No Non-Insulin Dependent?: Yes Do you monitor your blood sugar at home?: No Referral to Diabetic Clinic:: No Outcomes/Goals:: Able to state symptoms of, Able to state, Able to state and Other additional Intervention/Plan:: Instruct on, Refer to, Instruct on and Other 30-day Reassessments:: Progressing Reassessment Notes & Comments:: pt is doing well and will attend nutrition class Weight Mgt (Other Care) Height: 5 ft 4 in Weight:: 112 lb BMI: 19.2 Diagnosis Overweight/Obesity BMI> 30% ICD-10 E66: No Diagnosis High BMI/Morbid Obesity BMI> 35% ICD-10 Z68: No Outcomes/Goals: Pt sets, maintains & shows weight loss goal & trend during rehab and Other additional outcomes/goals Intervention/Plan: Instruct on ideal BMI & set weight loss goal w/patient, Assist pt to ID & incorporate diet changes for weight loss by S9, Refer to Structured Weight Loss program as appropriate, Encourage goal of using 250- 300dcal per session for weight loss and Other additional plan/interventions 30 day Reassessments:: Progressing Reassessment Notes & Comments:: pt will attend nutrition class Healthy Eating Habits Will attend diet classes:: Yes Outcomes/Goals:: Consume diet rich in vegs,fruits,whole grain/high fiber,fish,lean meat, Limit sat/trans fats,cholesterol & added salts & sugars and Other additional outcome/goals: Intervention/Plan:: Assess current eating habits and Other Additional plan/interventions 30-day Reassessments:: Progressing Reassessment Notes & Comments:: pt to attend nutrition class Education Gave educational materials for:: Signs & symptoms of hypoglycemia, Signs & symptoms of hyperglycemia, Relate diabetes to coronary artery disease and Healthy eating Nutrition - 60-Day Assessment Weight Mgt (Other Care) Height: 5 ft 4 in Weight:: 112 lb BMI: 19.2 Core - 30-Day Assessment Visit Date of Eval: 06/12/23 Session #:: 9 Medication Compliance Preventative Medication(s):: Aspirin, ANNI inhibitor, Statin/lipid and ARB (Angiotensi Rcap) H/O mental health issues: depression, anxiety, or addiction?: No Doesn?t believe in the benefits of treatment?: No Believes medications are unnecessary or harmful?: No Has a concern about medication side effects?: No Expresses concern over the cost of medications?: No Outcomes/Goals: Verbalizes medications,desired effect & common side effects @ DC, Pt self-reports following medication regimen, Keeps card in wallet w/medicat ions listed by DC and Other additional outcome/goals: Interventions/plans: Instruct on medication effects & side effects, Review medication list w/patient every two weeks, Instruct importance of taking meds as ordered & assist problem solving and Other additional 30-day Reassessments:: Progressing Reassessment Notes & Comments:: pt encouraged to take her meds Tobacco Use Tobacco Use: Non-smoker Hypertension Hypertension Diagnosis:: Hypertension ICD-10 I10 Resting Blood Pressure:: 138/66 [place] [employer] Hypertension Guidelines Peak Exercise Blood Pressure:: 168/72 Outcomes/Goals: Able to verbalize/achieve optimal blood pressure <130/80, Incorporates diet changes & exercise for blood pressure control by DC and Other additional outcomes/goals Interventions/plan: Instruct on optimal blood pressure, hypertension & medications, Instruct on effects of sodium, alcohol, stress, exercise &hype rtension and Other additional plan/interventions 30 day Reassessments:: Progressing Reassessment Notes & Comments:: pt encouraged to take her meds Tobacco Cessation Referral Smoking Cessation Referral:: No Individual Education/Counseling:: No Education Schedule Given:: Yes Psychosocial - 30-Day Assess VIsit Date of Eval: 06/12/23 Session #:: 9 History of previous Mental disease:: No Target Goals Target Goals Psychosocial - 60-Day Assess Target Goals Target Goals Psychosocial - 90-Day Assess Target Goals Target Goals Psychosocial - Final Assessmen Target Goals Target Goals Nutrition - 90-Day Assessment Weight Mgt (Other Care) Height: 5 ft 4 in Weight:: 112 lb BMI: 19.2 Nutrition - Final Assessment Weight Mgt (Other Care) Height: 5 ft 4 in Weight:: 112 lb BMI: 19.2
[2023-06-12 11:22] VITALS: BP 138/66
[2023-06-12 11:29] VITALS: BP 138/66
[2023-06-12 11:30] VITALS: BMI 19.2
== END 2023-06-22 23:59 ==
LOC: CR 10:15
PROVIDERS: PCP Nurse Practitioner Adult Health; Referring Provider Internal Medicine Cardiovascular Disease; Visit Provider Internal Medicine Cardiovascular Disease
DX: Z95.2 Presence of prosthetic heart valve (principal)
CPT/HCPCS: 93798

== ENCOUNTER 2023-07-21 10:15 | Outpatient (RCR) | payer MEDICARE, OTHER, SELFPAY ==
[2023-06-12 11:30] VITALS: BMI 19.2
[2023-06-23 00:39] VITALS: BP 138/66
--- NOTE | 2023-07-12 10:18 | CR.ITP_ITS ---
Nutrition - Initial Assessment Weight Mgt (Other Care) Height: 5 ft 4 in Weight:: 111 lb BMI: 19.0 Psychosocial - Initial Assess Target Goals Target Goals Patient Health Questionnaire PHQ-9 Screening 60-Day Re-eval Assessment: 1. Little interest or pleasure in doing things: Not at all 2. Feeling down, depressed, or hopeless: Not at all 3. Trouble falling or staying asleep, or sleeping too much: Several days 4. Feeling tired or having little energy: More than half the days 5. Poor appetite or overeating: Not at all 6. Feeling bad about yourself -- or that you are a failure or have let yourself or your family down: Not at all 7. Trouble concentrating on things, such as reading the newspaper or watching television: Not at all 8. Moving or speaking so slowly that other people could have noticed. Or the opposite - being so fidgety or restless that you have been moving around a lot more than usual: Not at all 9. Thoughts that you would be better off , or of hurting yourself in some way: Not at all How difficult have these problems made it for you to do your work, take care of things at home, or get along with other people?: Somewhat difficult Total Score: 3 Self-Efficacy 6-Item Scale 60-Day Re-eval Assessment: We would like to know how confident you are in doing certain activities. Please select your confidence level for: Fatigue Select Number: 4 Physical Discomfort or Pain Select Number: 8 Emotional Distress Select Number: 5 Other Symptoms or Health Problems Select Number: 5 Different Tasks and Activities Select Number: 5 Medication Select Number: 5 Total Score:: 5 Nutrition Survey Nutrition Survey Instructions Scoring Instructions Exercise - 60-day Assessment Visit Date of Eval: 07/12/23 Session #:: 21 Physician Prescribed Exercise Modalities: Treadmill, Rower and NuStep Frequency: 3x/week for 12 weeks [36 sessions] Intensity: 60-80% of age predicted maximum heart rate reserve Current METSs:: 4 Target Heart Rate:: 97-112 Current RPE:: 12-13 Maximum Excercise HR:: 95 Resting Blood Pressure: 162/72 Maximum Exercise Blood Pressure: 170/82 EKG Type: SB to ST with frequent PVC, freq qaudrigeminy Outcomes & Goals Goals:: Verbalizes understanding of THR, RPE & goal METS by session 6, Documents in home exercise log/reports 30 min aerobic 5 day/wk by DC, Demonstrates accurate pulse taking by DC and Other additional outcome/goals: see below Intervention & Plan Exercise Program Goals: Instruct on personal THR & RPE, Instruct on MET level & personal MET goal, Show patient to take own pulse /validate performance until accurate, Instruct on home exercise and Other additional plan/int 30-day Reassessments 30 day Reassessments:: Progressing Reassessment Notes & Comments:: MET's explained Physical Activity Home Exercise Physical Activity - Home Exercise: Safe Exercise, Warm-up, Self-monitoring, Cool-Down, Home Exercise > 30 min Daily and Sitting Time <3 hours/daily Outcomes & Goals Outcomes/Goals: Demonstrates correct Warm-up/exercise Cool-Down (S3) if = 2.5 METs, Verbalizes symptoms of exercise intolerance by Session 3 (S3), Demonstrate safe equipment use (S3) & follows exercise prescrition (6) and Other: See below Intervention & Plan Plan/Intervention: Instruct warm-up & cool-down if exercising at > 2 METs, Instruct on symptoms of exercise intolerance & actions to take, Instruct & monitor on saf, Assess intial functional capacity & safety risk and Other See below 30-day Reassessments 30 day Reassessments:: Progressing Reassessment Notes & Comments:: cool down encouraged Nutrition - 30-Day Assessment Weight Mgt (Other Care) Height: 5 ft 4 in Weight:: 111 lb BMI: 19.0 Nutrition - 60-Day Assessment Program Goals Nutrition Program Goals Patient has diagnosis of Hyperlipidemia (ICD E78)?: Yes Visit Date of Eval: 07/12/23 Session #:: 21 Cholesterol/Lipids (Other Core Measures) Determine presence & major risk factors that modify LDL goal: Hypertension or hypertensive medication, Low HDL cholesterol <40 mg/dL*, Family history of premature CHD in Male < 55 years: female <65 yearsFa and Age men > 45 years; wom en >/= 55 years Outcomes/Goals: Pt IDs own risk factors & lifestyle modifications by Session 10, Verbalizes symptoms of angina & response by session 3., Pt independently manages and Other Additional Outcomes/Goals: Intervention/Plan: Advocate for lipid panel cholesterol medication if applicable, Instruct on personal lipid levels & lipid goals/NCEP guidelines, Instruct on cholesterol and Other additional plan/int 30-day Reassessments:: Progressing Reassessment Notes & Comments:: pt attended nutrition class Diabetes (Other Core Measures) Diabetes Type: 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 Insulin dependent injection/pump?: No Non-Insulin Dependent?: Yes Do you monitor your blood sugar at home?: No Referral to Diabetic Clinic:: No Outcomes/Goals:: Able to state symptoms of, Able to state, Able to state and Other additional Intervention/Plan:: Instruct on, Refer to, Instruct on and Other 30-day Reassessments:: Met Weight Mgt (Other Care) Height: 5 ft 4 in Weight:: 111 lb BMI: 19.0 Diagnosis Overweight/Obesity BMI> 30% ICD-10 E66: No Diagnosis High BMI/Morbid Obesity BMI> 35% ICD-10 Z68: No Outcomes/Goals: Pt sets, maintains & shows weight loss goal & trend during rehab and Other additional outcomes/goals Intervention/Plan: Instruct on ideal BMI & set weight loss goal w/patient, Rajesh t pt to ID & incorporate diet changes for weight loss by S9, Refer to Structured Weight Loss program as appropriate, Encourage goal of using 250-300dcal per session for weight loss and Other additional plan/interventions 30 day Reassessments:: Met Healthy Eating Habits Will attend diet classes:: Yes Outcomes/Goals:: Consume diet rich in vegs,fruits,whole grain/high fiber,fish,lean meat, Limit sat/trans fats,cholesterol & added salts & sugars and Other additional outcome/goals: Intervention/Plan:: Assess current eating habits and Other Additional plan/interventions 30-day Reassessments:: Met Education Gave educational materials for:: Signs & symptoms of hypoglycemia, Signs & symptoms of hyperglycemia, Relate diabetes to coronary artery disease and Healthy eating Core - 60-Day Assessment Visit Date of Eval: 07/12/23 Session #:: 21 Medication Compliance Preventative Medication(s):: Aspirin, ANNI inhibitor, Statin/lipid and ARB (Angiotensi Rcap) H/O mental health issues: depression, anxiety, or addiction?: No Doesn?t believe in the benefits of treatment?: No Believes medications are unnecessary or harmful?: No Has a concern about medication side effects?: No Expresses concern over the cost of medications?: No Outcomes/Goals: Verbalizes medications,desired effect & common side effects @ DC, Pt self-reports following medication regimen, Keeps card in wallet w/medications listed by DC and Other additional outcome/goals: Interventions/plans: Instruct on medication effects & side effects, Review medication list w/patient every two weeks, Instruct importance of taking meds as ordered & assist problem solving and Other additional 30-day Reassessments:: Met Tobacco Use Tobacco Use: Non-smoker Hypertension Hypertension Diagnosis:: Hypertension ICD-10 I10 Resting Blood Pressure:: 162/72 [place] [employer] Hypertension Guidelines Peak Exercise Blood Pressure:: 170/82 Outcomes/Goals: Able to verbalize/achieve optimal blood pressure <130/80, Incorporates diet changes & exercise for blood pressure control by DC and Other additional outcomes/goals Interventions/plan: Instruct on optimal blood pressure, hypertension & medications, Instruct on effects of sodium, alcohol, stress, exercise &hypertension and Other additional plan/interventions 30 day Reassessments:: Progressing Reassessment Notes & Comments:: encouraged pt to take her meds, Amlodipine increased to 10 mg daily Tobacco Cessation Referral Smoking Cessation Referral:: No Individual Education/Counseling:: No Education Schedule Given:: Yes Psychosocial - 30-Day Assess Target Goals Target Goals Psychosocial - 60-Day Assess VIsit Date of Eval: 07/12/23 Session #:: 21 History of previous Mental disease:: No Target Goals Target Goals Psychosocial - 90-Day Assess Target Goals Target Goals Psychosocial - Final Assessmen Target Goals Target Goals Nutrition - 90-Day Assessment Weight Mgt (Other Care) Height: 5 ft 4 in Weight:: 111 lb BMI: 19.0 Nutrition - Final Assessment Weight Mgt (Other Care) Height: 5 ft 4 in Weight:: 111 lb BMI: 19.0
[2023-07-12 10:36] VITALS: BP 162/72; BMI 19.0
== END 2023-07-22 23:59 ==
LOC: CR 10:15
PROVIDERS: PCP Nurse Practitioner Adult Health; Referring Provider Internal Medicine Cardiovascular Disease; Visit Provider Internal Medicine Cardiovascular Disease
DX: Z95.2 Presence of prosthetic heart valve (principal)
CPT/HCPCS: 93798

== ENCOUNTER 2023-08-16 09:30 | Outpatient (RCR) | payer MEDICARE, OTHER, SELFPAY ==
[2023-07-12 10:36] VITALS: BMI 19.0
[2023-07-23 00:24] VITALS: BP 138/66; BP 162/72
== END 2023-08-22 23:59 ==
LOC: CR 09:30
PROVIDERS: PCP Nurse Practitioner Adult Health; Referring Provider Internal Medicine Cardiovascular Disease; Visit Provider Internal Medicine Cardiovascular Disease
DX: Z95.2 Presence of prosthetic heart valve (principal)
CPT/HCPCS: 93798

== ENCOUNTER → 2023-09-15 | Outpatient (CLI) | payer MEDICARE, OTHER, SELFPAY ==
[2023-07-12 10:36] VITALS: BMI 19.0
[2023-09-15 12:45] LABS: ALB/GLOB Ratio 1.1 RATIO (0.9-2.4); AST(SGOT) 12 U/L (15-37); Alanine Aminotransfer ALT/SGPT 15 U/L (13-56); Alkaline Phosphatase 72 U/L (45-117); Anion Gap 4 (5-15); BUN 16 mg/dL (7-18); BUN/Creat Ratio 13.3 RATIO (10-20); Calcium,Total 10.4 mg/dL (8.5-10.1); Chloride 105 mmol/L (98-107); EST Glomerular Filtration Rate 47 mL/min (>60); Est Glom Filt Rate - Afr Amer 57 mL/min (>60); Globulin 3.7 g/dL (2.2-4.2); Glucose 112 mg/dL (74-106); Potassium 4.1 mmol/L (3.5-5.1); Protein, Total 7.7 g/dL (6.4-8.2); Sodium Level 137 mmol/L (136-145)
== END | disposition home or self-care (01) ==
LOC: LAB 11:19
PROVIDERS: PCP Nurse Practitioner Adult Health; Visit Provider Nurse Practitioner Family
DX: I10 Essential (primary) hypertension (principal); I35.0 Nonrheumatic aortic (valve) stenosis; E78.5 Hyperlipidemia, unspecified
CPT/HCPCS: 36415; 80053

== ENCOUNTER 2024-01-26 10:38 | Outpatient (CLI) | payer MEDICARE, OTHER, SELFPAY ==
[2023-07-12 10:36] VITALS: BMI 19.0
[2024-01-26 11:00] VITALS: BP 154/73; PULSE 60; RESP 16; TEMP 36.3; O2SAT 98
[2024-01-26] MEDS: Zoledronic Acid 5 MG 100 ML 300 MG IV (11:16)
[2024-01-26] MEDS: 0.9% NaCl Peripheral Flush Adult/Peds IV (11:16)
[2024-01-26 11:44] VITALS: BP 120/60; PULSE 58; RESP 16; O2SAT 100
== END 2024-01-26 10:39 | disposition home or self-care (01) ==
LOC: MEDOUTP 10:39
PROVIDERS: PCP Nurse Practitioner Adult Health; Referring Provider Internal Medicine Endocrinology, Diabetes & Metabolism; Visit Provider Internal Medicine Endocrinology, Diabetes & Metabolism
DX: E21.3 Hyperparathyroidism, unspecified (principal); M85.80 Other specified disorders of bone density and structure, unspecified site
CPT/HCPCS: 96365; A4216; J3489

== ENCOUNTER → 2024-04-03 | Outpatient (CLI) | payer MEDICARE, OTHER, SELFPAY ==
[2023-07-12 10:36] VITALS: BMI 19.0
[2024-04-03 11:53] LABS: Absolute Lymphocyte Count 1.65 X10^3/uL (0.83-4.51); Absolute Neutrophil Count 5.1 X10^3/uL (2.0-7.7); Basophil# 0.07 X10^3/uL; Basophil% 0.9 % (0-1); Eosinophil# 0.12 X10^3/uL; Eosinophils% 1.6 % (0-5); Hematocrit 37.4 % (37-47); Hemoglobin 11.6 g/dL (12.0-15.0); Lymphocyte # 1.65 X10^3/ul (0.83-4.51); Lymphocyte % 21.4 % (19-41); Mean Corpuscular Hgb 28.2 pg (27.0-32.0); Mean Platelet Vol. 10.1 fl (6.2-12.0); Monocyte# 0.75 X10^3/uL; Monocyte% 9.7 % (0-10); NRBC Flagged by Analyzer 0 % (0-5); Neutrophil # 5.09 X10^3/uL (2.7-7.7); Neutrophil % 66.1 % (47-70); Platelet Count 303 K/mm3 (150-450); RBC Distribution Width SD 42.8 fl (35.1-43.9); Red Blood Count 4.11 M/mm3 (4.2-5.4); White Blood Count 7.7 K/mm3 (4.4-11.0)
[2024-04-03 12:18] LABS: Anion Gap 3 (5-15); BUN 16 mg/dL (7-18); BUN/Creat Ratio 12.9 RATIO (10-20); Calcium,Total 10.9 mg/dL (8.5-10.1); Chloride 109 mmol/L (98-107); Creatinine, Serum 1.24 mg/dL (0.55-1.02); EST Glomerular Filtration Rate 45 mL/min (>60); Est Glom Filt Rate - Afr Amer 55 mL/min (>60); Glucose 106 mg/dL (74-106); Potassium 4.5 mmol/L (3.5-5.1); Sodium Level 137 mmol/L (136-145)
== END | disposition home or self-care (01) ==
LOC: LAB 11:39
PROVIDERS: PCP Nurse Practitioner Adult Health; Referring Provider Nurse Practitioner Family; Visit Provider Nurse Practitioner Family
DX: I25.10 Atherosclerotic heart disease of native coronary artery without angina pectoris (principal); I35.0 Nonrheumatic aortic (valve) stenosis; I10 Essential (primary) hypertension; E78.2 Mixed hyperlipidemia
CPT/HCPCS: 80048; 85025

== ENCOUNTER → 2024-05-15 | Outpatient (CLI) | payer MEDICARE, OTHER, SELFPAY ==
[2023-07-12 10:36] VITALS: BMI 19.0
--- NOTE | 2024-05-15 13:13 | ECHOD_ITS ---
Reason For Study: , s/p TAVR Procedure This was a 2D Doppler, Color Flow transthoracic echocardiogram. Exam performed in department. Left Ventricle Normal LV size. Left ventricular systolic function is normal. The left ventricular ejection fraction is 65 %. Stage 1 diastolic dysfunction. No regional wall motion abnormalities noted. Right Ventricle Normal RV size. Normal systolic function. Atria Normal left atrium. Normal right atrium. Mitral Valve Normal mitral valve. Tricuspid Valve Normal tricuspid valve. Mild tricuspid valve insufficiency. Pulmonary artery systolic pressure is 26 mmHg. Aortic Valve Peak aortic valve gradient 26 mmHg. Mean aortic valve gradient 16 mmHg. Bioprosthetic aortic valve. Pulmonic Valve Normal pulmonic valve. Great Vessels Mildly dilated aortic root. The pulmonary artery is normal size. Normal inferior vena cava. Pericardium/Pleural No pericardial effusion. MMode/2D Measurements & Calculations LVIDd: 4.0 cm IVSd: 1.0 cm LVOT diam: 2.0 cm LVIDs: 2.5 cm LVPWd: 0.93 cm LVOT area: 3.3 cm2 RVDd: 3.2 cm FS: 37.9 % LAV(MOD-bp): 20.8 ml LVAd ap4: 22.3 cm2 SV(MOD-sp4): 35.8 ml LAV(MOD-bp) Indexed: 13.7 ml/m2 LVLd ap4: 7.2 cm LAV(MOD-sp2): 22.9 ml EDV(MOD-sp4): 55.7 ml LAV(MOD-sp4): 18.0 ml EDV(sp4-el): 58.4 ml LVAs ap4: 11.6 cm2 LVLs ap4: 6.0 cm ESV(MOD-sp4): 19.9 ml ESV(sp4-el): 19.2 ml EF(MOD-sp4): 64.3 % EF(sp4-el): 67.0 % SV(sp4-el): 39.1 ml LA A4 area: 9.6 cm2 LA dimension(2D): 2.6 cm RA A4 area: 8.8 cm2 TAPSE: 1.7 cm Time Measurements MV dec time: 0.27 sec Doppler Measurements & Calculations MV E max irwin: 84.9 cm/sec Lat Peak E' Irwin: 7.9 cm/sec Med Peak E' Irwin: 7.2 cm/sec MV A max irwin: 98.5 cm/sec E/E' lat: 10.8 E/E' med: 11.7 MV E/A: 0.86 Ao V2 max: 255.3 cm/sec LV V1 max: 164.1 cm/sec MV dec slope: 309.7 cm/sec2 Ao max P.1 mmHg LV V1 max P.8 mmHg Ao V2 mean: 192.3 cm/sec LV V1 mean P.2 mmHg Ao mean P.8 mmHg LV V1 mean: 128.6 cm/sec Ao V2 VTI: 56.8 cm LV V1 VTI: 40.0 cm AV (velocity ratio): 0.70 ANGELI(I,D): 2.3 cm2 ANGELI(V,D): 2.1 cm2 SV(LVOT): 130.9 ml PA V2 max: 73.6 cm/sec TR max irwin: 235.2 cm/sec PA max PG (full): 0.69 mmHg TR max P.1 mmHg ECHO/Echo Complete Interpretation Summary Normal LV size. Left ventricular systolic function is normal. The left ventricular ejection fraction is 65 %. Stage 1 diastolic dysfunction. Pulmonary artery systolic pressure is 26 mmHg. Bioprosthetic aortic valve. Mean aortic valve gradient 16 mmHg. Ordering Physician: Barrie Fierro Referring Physician: Tressa Bryan Performed By: Thea Fierro RVT, RDCS and Student
== END | disposition home or self-care (01) ==
LOC: CVS 13:09
PROVIDERS: PCP Nurse Practitioner Adult Health; Referring Provider Nurse Practitioner Family; Visit Provider Nurse Practitioner Family
DX: I35.0 Nonrheumatic aortic (valve) stenosis (principal); I25.10 Atherosclerotic heart disease of native coronary artery without angina pectoris; I10 Essential (primary) hypertension; E78.2 Mixed hyperlipidemia
CPT/HCPCS: 93306

== ENCOUNTER → 2025-03-11 | Outpatient (CLI) | payer MEDICARE, OTHER, SELFPAY ==
[2023-07-12 10:36] VITALS: BMI 19.0
[2025-03-11 16:54] LABS: PTHIN 97 pg/mL (11-61)
[2025-03-11 17:13] LABS: ALB/GLOB Ratio 1.5 RATIO (0.9-2.4); AST(SGOT) 21 U/L (<=31); Alanine Aminotransfer ALT/SGPT 9 U/L (<=34); Albumin, Serum 4.4 g/dL (3.4-4.8); Alkaline Phosphatase 67 U/L (35-104); Anion Gap 12 (5-15); BUN 14 mg/dL (4-19); BUN/Creat Ratio 12.3 RATIO (10-20); Calcium,Total 10.3 mg/dL (7.6-11.0); Carbon Dioxide 19.6 mmol/L (21.0-32.0); Chloride 106 mmol/L (98-108); Creatinine, Serum 1.17 mg/dL (0.70-1.20); EST Glomerular Filtration Rate 49 (>60); Glucose 101 mg/dL (70-99); Potassium 4.3 mmol/L (3.3-5.1); Protein, Total 7.4 g/dL (5.9-8.4); Sodium Level 138 mmol/L (133-145); Thyroid Stim Hormone (TSH) 0.725 uIU/mL (0.300-4.200); Total Bilirubin 0.28 mg/dL (0.00-1.30); Vitamin D,25 Hydroxy 55.1 ng/mL (30-100)
== END | disposition home or self-care (01) ==
LOC: LAB 15:02
PROVIDERS: PCP Nurse Practitioner Adult Health; Referring Provider Internal Medicine Endocrinology, Diabetes & Metabolism; Visit Provider Internal Medicine Endocrinology, Diabetes & Metabolism
DX: E11.9 Type 2 diabetes mellitus without complications (principal); E21.3 Hyperparathyroidism, unspecified; E03.8 Other specified hypothyroidism; E06.3 Autoimmune thyroiditis; M85.80 Other specified disorders of bone density and structure, unspecified site; E55.9 Vitamin D deficiency, unspecified
CPT/HCPCS: 36415; 80053; 82306; 83970; 84443

== ENCOUNTER 2025-03-19 14:01 | Outpatient (CLI) | payer MEDICARE, OTHER, SELFPAY ==
[2023-07-12 10:36] VITALS: BMI 19.0
[2025-03-19 14:12] VITALS: BP 155/76; PULSE 64; RESP 16; TEMP 35.6; O2SAT 100
[2025-03-19] MEDS: 0.9% NaCl IVPB Med Flush (100mL) 15 ML IV (14:24)
[2025-03-19] MEDS: Zoledronic Acid 5 MG 100 ML 300 MG IV (14:35)
[2025-03-19 15:19] VITALS: BP 150/62; PULSE 55; RESP 16; TEMP 35.5; O2SAT 98
== END 2025-03-19 23:59 | disposition home or self-care (01) ==
LOC: MEDOUTP 14:02
PROVIDERS: PCP Nurse Practitioner Adult Health; Referring Provider Internal Medicine Endocrinology, Diabetes & Metabolism; Visit Provider Internal Medicine Endocrinology, Diabetes & Metabolism
DX: M81.0 Age-related osteoporosis without current pathological fracture (principal)
CPT/HCPCS: 96365; A4216; J3489